=== PATIENT | female | born 1975 | race Caucasian/White ===

== ENCOUNTER 2018-04-26 10:39 | Emergency (ER) | payer OTHER ==
[2018-04-26 10:53] VITALS: PULSE 70; TEMP 98.7
[2018-04-26 10:54] VITALS: BMI 34.7
--- NOTE | 2018-04-26 12:36 | ED PDOC ---
Lower Extremity Pain/Injury Time Seen by Provider: 04/26/18 10:48 Chief Complaint (Nursing): Lower Extremity Problem/Injury Chief Complaint (Provider): Left knee pain since yesterday History Per: Patient History/Exam Limitations: no limitations Onset/Duration Of Symptoms: Days Current Symptoms Are (Timing): Still Present Additional Complaint(s): 42 yo female with history of right heel spur presents with left knee pain since last night. PT states he took motrin last night and iced area. Pt denies trauma. Pt denies knee pain in the past. No fall, twist or trauma. Pt reports pain the worst when lower herself down the steps or going up (using the left leg to raise, lower) PMD: Dr. Hansen Past Medical History Reviewed: Historical Data, Nursing Documentation, Vital Signs Vital Signs: Last Vital Signs Temp 98.7 F 04/26/18 10:51 Pulse 70 04/26/18 10:51 Resp 16 04/26/18 10:51 BP 141/94 H 04/26/18 10:51 Pulse Ox 97 04/26/18 10:51 - Medical History PMH: Gastritis - Surgical History Surgical History: No Surg Hx - Family History Family History: States: No Known Family Hx - Living Arrangements Living Arrangements: With Family - Social History Current smoker - smoking cessation education provided: No - Home Medications Home Medications: Ambulatory Orders Medication Instructions Recorded Citalopram Hydrobromide 20 mg PO DAILY 12/03/14 [Citalopram Hydrobromide] Ethinyl Estradiol/Norgestima 1 tab PO DAILY 12/03/14 [Ortho Tri-Cyclen 35 Mcg-0.18 mg] Ciprofloxacin/Ciprofloxa HCl 500 mg PO BID #14 tab 12/05/14 [Ciprofloxacin] Metronidazole 500 mg PO TID #21 tab 12/05/14 Ondansetron Hydrochloride 4 mg PO Q6 PRN #12 tab 12/05/14 Citalopram Hydrobromide [Celexa] 1 tab PO DAILY 12/27/14 - Allergies Allergies/Adverse Reactions: Allergies Allergy/AdvReac Type Severity Reaction Status Date / Time Apples Allergy ITCHING Uncoded 04/26/18 11:55 Cherries Allergy ITCHING Uncoded 04/26/18 11:55 Kiwis Allergy ITCHING Uncoded 04/26/18 11:55 Peaches Allergy ITCHING Uncoded 04/26/18 11:55 Review of Systems Constitutional: Negative for: Fever, Chills Musculoskeletal: Positive for: Other (Left knee pain) Skin: Negative for: Rash, Bruising Physical Exam - Reviewed Nursing Documentation Reviewed: Yes Vital Signs Reviewed: Yes - Physical Exam Appears: Positive for: Well, Non-toxic, No Acute Distress Head Exam: Positive for: ATRAUMATIC, NORMAL INSPECTION, NORMOCEPHALIC Skin: Positive for: Normal Color, Warm, DRY Eye Exam: Positive for: Normal appearance ENT: Positive for: Normal ENT Inspection Neck: Positive for: Normal Respiratory: Negative for: Accessory Muscle Use, Respiratory Distress Pulses-Dorsalis Pedis (L): 2+ Pulses-Dorsalis Pedis (R): 2+ Back: Positive for: Normal Inspection Extremity: Positive for: Normal ROM, Swelling (Mild medial, left knee ). Negative for: Tenderness, Deformity Neurologic/Psych: Positive for: Alert, Oriented - ECG O2 Sat by Pulse Oximetry: 97 Medical Decision Making Medical Decision Making: XR normal. Discussed f.u with Dr. Hansen or orthopedics. Disposition - Clinical Impression Clinical Impression: Knee pain - Patient ED Disposition Is Patient to be Admitted: No Counseled Patient/Family Regarding: Diagnosis, Need For Followup - Disposition Referrals: Adrian Riddle MD [Staff Provider] - Disposition: Routine/Home Disposition Time: 12:39 Condition: STABLE Additional Instructions: Ice, elevation, motrin. Instructions: Joint Pain
--- NOTE | 2018-04-26 12:50 | RAD ---
Date of service: 04/26/2018 PROCEDURE: Left Knee Radiographs. HISTORY: Pain. COMPARISON: None. FINDINGS: BONES: Normal. No fracture. JOINTS: Normal. No osteoarthritis. JOINT EFFUSION: None. OTHER FINDINGS: None. IMPRESSION: Normal radiographs of the left knee.
[2018-04-26 12:51] VITALS: BP 143/87; RESP 17; O2SAT 100
== END 2018-04-26 12:55 | disposition home or self-care (01) ==
LOC: H.ER 10:39
DX: M25.552 Pain in left hip (principal)